=== PATIENT | female | born 1970 | race Caucasian/White ===

== ENCOUNTER 2020-06-05 09:45 | Day surgery (SDC) | payer BC, SELFPAY ==
[2020-06-01 15:10] VITALS: BMI 33.5
--- NOTE | 2020-06-04 08:45 | HO.ANESPROP2 ---
Documented by User: Jessie Estevez 06/04/20 08:47 HPI - Anesthesia Eval Consult details Narrative: 49yo F for Colonoscopy PMFSH Past Medical History Medical History Diabetes DVT (deep venous thrombosis) Heartburn HTN (hypertension) Hx of fracture of femur Schizoaffective disorder, bipolar type Sleep apnea Surgical History Surgical History H/O colonoscopy History of mandibular surgery Hx of anterior cruciate ligament surgery Hx of foot surgery Social History Social History (Updated 06/01/20 @ 15:23 by Tita Daugherty) Alcohol intake: current Alcohol intake frequency: a few times a month Smoking Status: Never smoker Use of substances other than those prescribed or required for medical reasons: No Advance Directives Information Provided: No Recently lost weight without trying: No Meds Allergies Allergy/AdvReac Type Severity Reaction Status Date / Time No Known Allergies Allergy Verified 06/05/20 10:28 Home Medications Medication Instructions Recorded Confirmed Type Vitamin B-12 1 tab PO DAILY 06/01/20 06/01/20 History cholecalciferol (vitamin D3) 50 mcg PO DAILY 06/01/20 06/01/20 History [Vitamin D3] escitalopram oxalate 1 tab PO BEDTIME 06/01/20 06/01/20 History lisinopril 1 tab PO DAILY 06/01/20 06/01/20 History metformin 1 tab PO BID 06/01/20 06/01/20 History rosuvastatin 1 tab PO DAILY 06/01/20 06/01/20 History Exam Exam Date and Time: June 04, 2020 0845 Height,Weight and Vital Signs: Height 5 ft 3 in Weight 85.729 kg Assessment and Plan Assessment Anesthesia Assessment: Chart Reviewed Documented by User: Carolina Crisostomo 06/05/20 11:03 PMFSH Past Medical History Medical History Diabetes DVT (deep venous thrombosis) Heartburn HTN (hypertension) Hx of fracture of femur Schizoaffective disorder, bipolar type Sleep apnea Family History Family history of problems with anesthesia: No Surgical History Surgical History H/O colonoscopy History of mandibular surgery Hx of anterior cruciate ligament surgery Hx of foot surgery History of Problems with Anesthesia: No Social History Social History (Updated 06/01/20 @ 15:23 by iTta Daugherty) Alcohol intake: current Alcohol intake frequency: a few times a month Smoking Status: Never smoker Use of substances other than those prescribed or required for medical reasons: No Advance Directives Information Provided: No Recently lost weight without trying: No Meds Allergies Allergy/AdvReac Type Severity Reaction Status Date / Time No Known Allergies Allergy Verified 06/05/20 10:28 Home Medications Medication Instructions Recorded Confirmed Type Vitamin B-12 1 tab PO DAILY 06/01/20 06/01/20 History cholecalciferol (vitamin D3) 50 mcg PO DAILY 06/01/20 06/01/20 History [Vitamin D3] escitalopram oxalate 1 tab PO BEDTIME 06/01/20 06/01/20 History lisinopril 1 tab PO DAILY 06/01/20 06/01/20 History metformin 1 tab PO BID 06/01/20 06/01/20 History rosuvastatin 1 tab PO DAILY 06/01/20 06/01/20 History Exam Height,Weight and Vital Signs: Vital Signs Temp Pulse Resp BP Pulse Ox 06/05/20 10:29 97.9 F 72 15 123/86 97 Pertinent Lab Results Pertinent Lab Results: Lab Results 06/05/20 Range/Units 10:38 POC Glucose 107 (60-115) mg/dL Airway Mallampati Class: II TM Dist: >3cm Neck ROM: Full Loose/Missing/Broken Teeth: Yes (Chipped top front) Heart: RRR Lungs: CTAB Assessment and Plan Assessment Anesthesia Assessment: Anesthesia Plan Discussed and Chart Reviewed Final Anesthetic Review NPO: Yes ASA Class: II Final Preanesthetic Review: No Changes in Pt Med Stat, Meds/Allgs Chart Reviewed, Consent Obtained/Reviewed and Anes Risks/Benef Reviewed Patient Risk: Intermediate Procedure Risk: Low Assessment/Block/Sedation in SS: Assess/Block/Sedation-SS Anesthetic Plan Anesthetic Plan: MAC: Disposition: Standard PACU
[2020-06-05 10:29] VITALS: BP 123/86; PULSE 72; RESP 15; TEMP 36.6; O2SAT 97
[2020-06-05] MEDS: Lactated Ringers 1,000 ML 100 ML IVCONT (10:41)
[2020-06-05 10:43] LABS: Glucose, Whole Blood 107 mg/dL (60-115)
--- NOTE | 2020-06-05 10:54 | MHC.SHP ---
Pre-Procedural Eval Section A The patient is an INPATIENT: No Changes since office visit: No Cold of Flu in the past 2 weeks, No New Medical Problems, No Changes in Medication and No Patient answered all questions The History & Physical has been completed within 30 days and I have reviewed it.: Yes Section B Chief Complaint: screening Allergies: Allergies Allergy/AdvReac Type Severity Reaction Status Date / Time No Known Allergies Allergy Verified 06/05/20 10:28 Plan I have reviewed the history and physical and performed a pertinent physical examination on my patient. No changes have occurred unless specified.
[2020-06-05 11:30] VITALS: BP 87/47; PULSE 64; RESP 16; TEMP 36.1; O2SAT 97
--- NOTE | 2020-06-05 11:37 | OP_ITS ---
SURGEON: Alek Perez MD INDICATIONS: Colon cancer screening and prior history of adenomatous colon polyps. PREOPERATIVE DIAGNOSIS: POSTOPERATIVE DIAGNOSIS: PROCEDURE PERFORMED: Colonoscopy to the terminal ileum with biopsy. ESTIMATED BLOOD LOSS: COMPLICATIONS: ANESTHESIA: ASSISTANTS: SPECIMENS: MEDICATIONS: Monitored anesthesia care. DESCRIPTION OF PROCEDURE: History and physical performed. The risks and benefits of the procedure were explained to the patient. Informed consent was obtained. The patient was placed in the left lateral decubitus position. A digital rectal exam was performed and was found to be normal. The Olympus pediatric video colonoscope was introduced into the rectum and advanced to the cecum without difficulty. The cecum was identified by transillumination, palpation, and identification of ileocecal valve. Examination was performed and the scope was removed. She tolerated the procedure well and was taken to recovery area in stable condition. FINDINGS: The terminal ileum was normal. The visualized colonic mucosa was within normal limits without evidence of masses or ulcers. A single polyp at 80 cm measuring less than 5 mm was removed with biopsy forceps. No other polyps were identified. Retroflexed examination was normal. The quality of prep was good. IMPRESSION: Colon polyp. RECOMMENDATION: Follow up the biopsy results. MD LACEY Zaldivar/ALLEN / [id number]
[2020-06-05 11:44] VITALS: BP 99/54; PULSE 64; RESP 16; O2SAT 96
[2020-06-05 11:53] VITALS: BP 113/72; PULSE 70; RESP 16; TEMP 36.2; O2SAT 95
== END 2020-06-05 12:47 | disposition home or self-care (01) ==
PROVIDERS: PCP Internal Medicine; Visit Provider Internal Medicine Gastroenterology
PROC: 0DJD8ZZ Inspection of Lower Intestinal Tract, Via Natural or Artificial Opening Endoscopic (ICD-10-PCS; CPT 45378; principal; 2020-06-05 12:20)
DX: Z12.11 Encounter for screening for malignant neoplasm of colon (principal); Z86.010 Personal history of colon polyps; D12.4 Benign neoplasm of descending colon; E11.9 Type 2 diabetes mellitus without complications; I10 Essential (primary) hypertension; F25.0 Schizoaffective disorder, bipolar type; G47.30 Sleep apnea, unspecified; Z79.84 Long term (current) use of oral hypoglycemic drugs; Z79.899 Other long term (current) drug therapy
CPT/HCPCS: 45380; 82947; 88305